=== PATIENT | female | born 1965 | race Caucasian/White ===

== ENCOUNTER 2017-05-04 13:52 | Emergency (ER) | payer BC ==
[2017-05-04 14:22] VITALS: BP 156/78
--- NOTE | 2017-05-04 14:30 | UC ---
Catie Brar Rebecca, scribed for Mitchell Allen MD on 05/04/17 at 1415 . General HPI - HPI Summary HPI Summary: Pt is a 51 y/o F who presents to [facility] c/o low pulse rate and low BP COMMERCIAL ILLUSTRATOR, according to her home monitor. Pt reports that at home, her pulse was in the 40s and her BP was 110/77 whereas the BP is typically 150 systolic. Currently, she c/o palpitations characterized as irregular and pounding. Additionally c/o lightheadedness upon sitting up. Took 81 mg ASA COMMERCIAL ILLUSTRATOR. Denies CP, SOB, fever, chills, edema, and abd pain. Reports one incidence of irregular heart rhythm (" 2 beats then none") 1-2 years ago after ceasing oral contraceptives. Is not on any blood thinners or diuretics. Negative recent illness. Takes Losartan to treat HTN. Has never had a stress test or worn a surveillance system monitor. FHx PEs. - History of Current Complaint Stated Complaint: PULSE LOW BP OFF Time Seen by Provider: 05/04/17 14:03 Hx Obtained From: Patient Hx Last Menstrual Period: 3 WEEKS AGO Onset/Duration: Still Present Current Severity: None Pain Intensity: 0 Pain Location at: NEGATIVE Aggravating: Nothing Alleviating: Nothing Associated Signs & Symptoms: Positive: Palpitations - irregular, pounding, Other - Low BP and heart rate COMMERCIAL ILLUSTRATOR; lightheadedness upon sitting up - Allergy/Home Medications Allergies/Adverse Reactions: Allergies Allergy/AdvReac Type Severity Reaction Status Date / Time Iodine Allergy Severe acute Verified 05/04/17 14:22 pancreatitis Sulfa Drugs Allergy Severe Hives Verified 05/04/17 14:22 PMH/Surg Hx/FS Hx/Imm Hx Previously Healthy: No Cardiovascular History: Hypertension GI/ History: Other Other GI/ History: Crohn's - Surgical History Surgical History: Yes Surgery Procedure, Year, and Place: COLOSTOMY, OPEN ABD SURGERY-10/18/2014- PERITONITIS, COLOSTOMY REVERSAL 08/2015 - Family History Known Family History: Positive: Other - FHx PE; no family hx Crohns - Social History Alcohol Use: None Substance Use Type: None Smoking Status (MU): Never Smoked Tobacco - Immunization History Most Recent Influenza Vaccination: HAS NOT HAD Most Recent Tetanus Shot: UP TO DATE Most Recent Pneumonia Vaccination: HAS NOT HAD Review of Systems Constitutional: Other - Low BP and heart rate COMMERCIAL ILLUSTRATOR, per home monitor Skin: Negative Eyes: Negative ENT: Negative Respiratory: Negative Cardiovascular: Palpitations - irregular and pounding Gastrointestinal: Negative Genitourinary: Negative Motor: Negative Neurovascular: Negative Musculoskeletal: Negative Neurological: Other - Lightheadedness upon sitting up Psychological: Negative All Other Systems Reviewed And Are Negative: Yes Physical Exam Triage Information Reviewed: Yes Vital Signs: Initial Vital Signs Temp 98.1 F 05/04/17 14:05 Pulse 49 05/04/17 14:05 Resp 18 05/04/17 14:05 BP 156/78 05/04/17 14:05 Pulse Ox 100 05/04/17 14:05 Vital Signs Reviewed: Yes - Additional Comments The patient is well-nourished in no acute distress and in no acute pain. The skin is warm and dry and skin color reflects adequate perfusion. No cyanosis and is not diaphoretic. HEENT: The head is normocephalic and atraumatic. The pupils are equal and reactive. The conjunctivae are clear and without drainage. Nares are patent and without drainage. Mouth reveals moist mucous membranes and the throat is without erythema and exudate. The external ears are intact. The ear canals are patent and without drainage. The tympanic membranes are intact. Neck is supple with full range of motion and non-tender. There are no carotid bruits. Respiratory: Chest is non-tender. Lungs are clear to auscultation and breath sounds are symmetrical and equal. Cardiovascular: Hear is irregular with ectopy noted. There is no murmur or rub auscultated. There is no peripheral edema. She is bradycardic, pulse was about 42. Abdomen: The abdomen is soft and non-tender. There are normal bowel sounds heard in all four quadrants and there is no organomegaly palpated. Musculoskeletal: There is no back pain noted. Extremities are non-tender with full range of motion. There is good capillary refill. There is no peripheral edema or calf tenderness elicited. Neurological: Patient is alert and oriented to person, place and time. The patient has symmetrical motor strength in all four extremities. Psychiatric: The patient has an appropriate affect and does not exhibit any anxiety or depression. Diagnostics - Laboratory Diagnostic Studies Completed/Ordered: EKG: Done at 1356. rate: 75 bpm. ectopy : PVCs (trigegminy). Old anterior wall GA. NOrmal axis Course/Dx - Course Course Of Treatment: Pt is a 51 y/o F who presents to [facility] c/o low pulse rate and low BP COMMERCIAL ILLUSTRATOR, according to her home monitor. Pt reports that at home, her pulse was in the 40s and her BP was 110/77 whereas the BP is typically 150 systolic. Currently, she c/o palpitations characterized as irregular and pounding. Additionally c/o lightheadedness upon sitting up. Took 81 mg ASA COMMERCIAL ILLUSTRATOR. Denies CP, SOB, fever, chills, edema, and abd pain. Reports one incidence of irregular heart rhythm ("2 beats then none") 1-2 years ago after ceasing oral contraceptives. Is not on any blood thinners or diuretics. Negative recent illness. Takes Losartan to treat HTN. FHx PEs. EKG was done at 1356, rate 75 bpm , reveals trigeminy and an old anterior wall GA with nl axis. Pt confirms that she has never had a cardiac workupa dn that she has not had her BP medication changed in multiple years. Discussed that the pt must be monitored and have further testing completed that is not offered at Urgent Care to which she understands. Offered pt ambulance transportation to [facility] which she denied and will be transported via private car. She will be D/C with Dx of cardiac dysrhythmia, hypertension and near-syncope. She is advised to immediately be evaluated by [facility]. She understands and agrees. Patient medications reviewed this visit. - Differential Dx - Multi-Symptom Provider Diagnoses: Cardiac dysrhythmia. Hypertension. Near-syncope. Discharge - Discharge Plan Condition: Stable Disposition: HOME Patient Education Materials: Near Syncope (ED), Hypertension (ED) Referrals: Emmanuel Pickering MD [Primary Care Provider] - Additional Instructions: Immediately be evaluated by [facility]. The documentation as recorded by the Catie apodaca Rebecca accurately reflects the service I personally performed and the decisions made by , Mitchell Allen MD.
== END 2017-05-04 14:33 | disposition home or self-care (01) ==
LOC: UCEAST 13:52
DX: I49.9 Cardiac arrhythmia, unspecified (principal); I10 Essential (primary) hypertension; R55 Syncope and collapse
CPT/HCPCS: 93005; 99211; G0463

== ENCOUNTER 2017-05-04 14:51 | Observation (INO) | payer BC ==
[2017-05-04] MEDS ORDERED: Aspirin Low Dose CHEW TAB* 81 MG PO ONE (15:23)
--- NOTE | 2017-05-04 16:04 | RAD ---
Indication: Shortness of breath. Bradycardia; irregular rhythm. Comparison: November 03, 2015 CT abdomen. Technique: Upright AP 1531 hours Report: Clear lungs and pleural spaces. Negative for pneumothorax. The heart, pulmonary vasculature, and mediastinal contours are unremarkable. IMPRESSION: No evidence for acute intrathoracic disease.
[2017-05-04 16:06] LABS: Hematocrit 39 % (35-47); Hemoglobin 12.6 g/dl (12.0-16.0); Mean Corpuscular HGB Conc 33 g/dl (31-36); Mean Corpuscular Hemoglobin 31 pg (27-31); Mean Corpuscular Volume 93 fL (80-97); Mean Platelet Volume 9 um3 (7.4-10.4); Red Blood Count 4.12 10^6/ul (4.0-5.4); Red Cell Distribution Width 16 % (10.5-15); White Blood Count 4.6 10^3/ul (3.5-10.8)
[2017-05-04 16:22] LABS: Albumin 4.3 g/dL (3.2-5.2); BUN/Creatinine Ratio 18.6 (8-20); Calcium 9.3 mg/dL (8.6-10.3); EGFR African American 77.6 (>60); EGFR Non-African American 60.3 (>60); Globulin 2.4 g/dL (2-4); Total Bilirubin 0.5 mg/dL (0.2-1.0); Total Protein 6.7 g/dL (6.4-8.9)
[2017-05-04 17:04] LABS: TSH (Thyroid Stimulating Horm) 0.85 mcIU/mL (0.34-5.60)
[2017-05-04 17:11] LABS: Free T4 0.77 ng/dL (0.61-1.12)
[2017-05-04 19:24] LABS: Magnesium 1.8 mg/dL (1.9-2.7)
--- NOTE | 2017-05-05 04:45 | HP ---
CC: Dr. Pickering * [facility] MEDICINE HISTORY AND PHYSICAL: DATE OF ADMISSION: 05/04/17 PRIMARY CARE PHYSICIAN: Dr. Pickering. ATTENDING PHYSICIAN: Huey Ramon MD * (dictation provided by Alexei Campos NP ). CHIEF COMPLAINT: Palpitations and generalized weakness. HISTORY OF PRESENT ILLNESS: Ms. Peguero is a 51-year-old female with past medical history of Crohn's disease with colon perforation, colon resection, colostomy with reversal, as well as hypertension who presents today to the hospital with concerns for palpitations and not feeling well. Ms. Peguero states that she has been under extreme stress recently. She is moving and also under stress at work. In the course of this, she was feeling palpitations in her chest. She took her blood pressure via home blood pressure cuff. She noted it was quite high at 180/90 and her heart rate was 40 this was on . The following day, she again took her pulse and noted it was low. She was continuing to feel these funny palpitations in her chest. She took the evening off and slept well through the night. The next day she was again very tired. On Friday morning, she took her blood pressure again and noted it was in the 150s systolically, but her heart rate remained low in the 40s. She continued to have these odd sensations of palpitations. She spoke to her mother and then to her father who is a physician and they were very concerned about her heart rate being so low and encouraged to strongly to come [facility] for evaluation. At [facility], the patient was noted to have trigeminy with frequent PVCs. There was concern that she was lightheaded. The patient states that she was feeling very stressed about the overall events at that point. Because of the palpitations, PVCs, and lightheadedness, she was transitioned to [facility] ED. In the ED, Ms. Peguero was confirmed to be in trigeminy. It was clear when checking her pulse that the PVCs do not communicate and that likely explains the low heart rate. Thus far she has not had any bradycardia. Her blood pressure has been well controlled, running one-teens to 130s. Her first troponin was negative. EKG shows the PVCs, but no evidence of ischemia. The patient denies chest pain, shortness of breath, nausea, or abdominal pain. She has had no fevers. No chills. She has been eating and drinking normally. PAST MEDICAL HISTORY: 1. Hypertension. 2. Colon perforation with history of Crohn's disease. 3. Colon resection with colostomy and reversal in August 2015. MEDICATIONS: The patient does not know the exact dosages of her medications, but she does take: 1. Losartan. 2. Imitrex. 3. Wellbutrin. 4. Tramadol. FAMILY HISTORY: The patient's mom and dad both are alive and well. The patient 's mother's parents both related to blood clot. Mother has no known history of clotting disorder. SOCIAL HISTORY: No prior tobacco or drug use. The patient drinks alcohol occasionally. She lives with her mom now. She states her mom will be her healthcare proxy. REVIEW OF SYSTEMS: A 14-point review of systems was completed with Ms. Peguero and all those not mentioned above were negative. PHYSICAL EXAMINATION GENERAL: Ms. Peguero is sitting in the bed. She is in no acute distress. VITAL SIGNS: Temperature 98.3, heart rate 78, respiratory rate 14, O2 saturation 98% on room air, blood pressure 119/60. LUNGS: Clear to auscultation bilaterally with no accessory muscle use and good aeration. HEART: S1, S2 with some irregularity. There is no murmurs, rubs, or gallops. ABDOMEN: Soft, nontender with bowel sounds positive x4. EXTREMITIES: No cyanosis or edema. NEURO: She is alert and oriented x3. She moves all extremities equally. There is no facial asymmetry or focal weakness. Extraocular movements are intact. SKIN: Intact. LABORATORY DATA/DIAGNOSTIC STUDIES: Sodium 137, potassium 4.0, chloride 103, serum bicarbonate 28, BUN 18, creatinine 0.97, glucose 89, lactic acid 0.7, troponin 0.00. TSH 0.85, free T4 0.77. WBC 4.6, hemoglobin 12.6, hematocrit 39 , platelet count 218, D-dimer less than 200. Chest x-ray shows no acute process. EKG shows sinus rhythm with trigeminy and heart rate 70. ASSESSMENT: Ms. Peguero is a 51-year-old female with past medical history of hypertension and Crohn's disease with bowel perforation, colostomy, and colostomy reversal back in August 2015 who presents to the hospital today with concerned for palpitation and feeling tired and weak. PLAN: Our plans are for observation in the hospital for the followin. Palpitation with weakness: My concern is that the patient is having symptomatic trigeminy. I did speak with Dr. Reid on the phone regarding his recommendations and he would like for her to have an ischemic workup. Plans are for therefore for her to be monitored on telemetry. She will have repeat troponins. She will have a transthoracic echocardiogram. Finally, she will have a exercise nuclear stress test tomorrow. Lipid profile will be checked. She will continue on aspirin. The patient's potassium is 4.0 and anadd-on test for magnesium is pending. 2. Hypertension. The patient does not know the exact doses of her losartan, plan to start low dose at 25 mg daily until that can be confirmed with pharmacy at [facility] tomorrow. 3. DVT prophylaxis with early mobility. 4. Disposition to telemetry floor. TIME SPENT: Approximately 60 minutes was spent on admission of this patient, and more than half the time spent with the patient bedside reviewing the events leading up to this hospitalization, performing the physical examination, and reviewing the plan of care. ALEXEI CAMPOS NP [id number]/[facility] #: [id number] JEANIE
[2017-05-05] MEDS ORDERED: Magnesium Sulfate 2 GM IV* 2 GM/50 ML BAG IVPB ONE (06:53)
[2017-05-05] MEDS ORDERED: Aspirin EC TAB* 325 MG PO SCH (09:00)
[2017-05-05] MEDS ORDERED: Losartan TAB* 25 MG PO SCH (09:00)
--- NOTE | 2017-05-05 09:17 | ECHO ---
Patient: ARMIN PEDRO [facility] Rec#: [id number] : 1965 Date: 05/05/2017 Age: 51y Height: 172.72 cm / 68.0 in Weight: 57.61 kg / 127.0 lbs Sex: F BSA: 1.69 Room#: [facility] Admit Date#: 05/04/2017 Type: Inpatient Referring: Leeann Campos NP Reading: Lonnie Reid MD Chip Tuner: Dannielle Wright RDCS CC: Emmanuel Pickering MD Transthoracic Echocardiogram Indication: Palpitations, weakness. BP: 126/81 HR: 61 Rhythm: NSR with PVCs Findings History: Crohn's disease with colon perforation and resection, HTN. Technical Comments: The study quality is good. Completed at 0850. Left Ventricle: The left ventricular chamber size is normal. There is no left ventricular hypertrophy. Global left ventricular wall motion and contractility are within normal limits. Left ventricular systolic function is at the lower limits of normal. Frequent ectopy compromises the evalation of wall motion. Possible mild relative hypokinesis of the mid to distal anterior and anteroseptal segements. The estimated ejection fraction is 50-55%. There is no consistent Doppler evidence of clinically significant diastolic dysfunction. Left Atrium: The left atrial chamber size is normal. Right Ventricle: Moderator Band present. The right ventricular cavity size is normal. The right ventricular global systolic function is low normal. Right Atrium: The right atrial cavity size is normal. Aortic Valve: The aortic valve is trileaflet. There is trace to mild aortic regurgitation. There is no evidence of aortic stenosis. Mitral Valve: The mitral valve leaflets are mildly thickened. There is trace to mild mitral regurgitation. There is no evidence of mitral stenosis. Tricuspid Valve: The tricuspid valve leaflets are mildly thickened. There is mild tricuspid regurgitation. The right ventricular systolic pressure is estimated at 21 mmHg. No pulmonary hypertension is noted. There is no tricuspid stenosis. Pulmonic Valve: The pulmonic valve appears normal. There is a trace pulmonic regurgitation. There is no pulmonic stenosis. Pericardium: There is no significant pericardial effusion. Aorta: There is mild dilatation of the ascending aorta. There is no dilatation of the aortic arch. There is no dilation of the aortic root. Pulmonary Artery: The main pulmonary artery appears normal. Venous: The inferior vena cava appears normal in size. There is a greater than 50% respiratory change in the inferior vena cava dimension. Summary: There was not any prior study for comparison. Conclusions Global left ventricular wall motion and contractility are within normal limits. Left ventricular systolic function is at the lower limits of normal. Frequent ectopy compromises the evalation of wall motion. Possible mild relative hypokinesis of the mid to distal anterior and anteroseptal segements. The estimated ejection fraction is 50-55%. There is trace to mild aortic regurgitation. There is trace to mild mitral regurgitation. There is mild tricuspid regurgitation. Measurements Name Value Normal Range RVIDd (AP) 2D 3 cm (0.9 - 2.6) RVDdMajor (2D) 3.1 cm (2.2 - 4.4) RAd ISD 4CH 4.6 cm (3.4 - 4.9) RA (A4C)W 3.5 cm (2.9 - 4.6) IVSd (2D) 0.8 cm (0.6 - 1) LVPWd (2D) 0.8 cm (0.6 - 1) LVIDd (2D) 5 cm (3.6 - 5.4) LVIDs (2D) 3.49 cm - LV FS (2D) 30 % (25 - 45) Aortic Annulus 2.1 cm (1.4 - 2.6) Ao root diameter (2D) 3.4 cm (2.1 - 3.5) Ascending Ao 3.5 cm (2.1 - 3.4) Aortic arch 2.7 cm (1.8 - 3.4) LA dimension (AP) 2D 3.4 cm (2.3 - 3.8) LAd ISD 4CH 3.4 cm (2.9 - 5.3) LA ISD 4CH W 4.1 cm (2.5 - 4.5) Name Value Normal Range LA ESV SP 4CH (A/L) 33 ml - LA ESV SP 2CH (A/L) 65 ml - LA ESV BP (A/L) 50 ml - LA ESV BP (A/L) index 29.33 ml/m2 - LA ESV SP 4CH (MOD) 33 ml - LA ESV SP 2CH (MOD) 54 ml - Name Value Normal Range MV E-wave Vmax 0.52 m/sec - MV deceleration time 198.1 msec - MV A-wave Vmax 0.46 m/sec - MV E:A ratio 1.12 ratio - LV septal e' Vmax 0.08 m/sec - LV lateral e' Vmax 0.08 m/sec - LV E:e' septal ratio 6.5 ratio - LV E:e' lateral ratio 6.5 ratio - Name Value Normal Range AV Vmax 1.02 m/sec - AV VTI 17.8 cm - AV peak gradient 4.17 mmHg - AV mean gradient 1.78 mmHg - LVOT Vmax 0.69 m/sec - LVOT VTI 16.1 cm - LVOT peak gradient 1.88 mmHg - LVOT mean gradient 1.06 mmHg - HUANG Vmax 0.66 m/sec - Name Value Normal Range TR Vmax 2.1 m/sec - TR peak gradient 18 mmHg - RAP 3 mmHg - RVSP 21 mmHg - IVC diameter 2 cm - Name Value Normal Range PV Vmax 0.72 m/sec - PV peak gradient 2.08 mmHg -
--- NOTE | 2017-05-05 12:27 | RAD ---
HISTORY: Palpitation, weakness COMPARISONS: None TECHNIQUE: A 1 day stress/rest myocardial perfusion study was performed, with exercise stress. The exercise portion was performed using the David protocol, for a total METs of 14.8. The stress portion was monitored by Dr. Salazar. Gated SPECT imaging was performed, with CT-based attenuation correction DOSE: Stress: Technetium 99m tetrofosmin, 25.33 millicuries, injected at 11:21 AM on May 05, 2017 Rest: Technetium 99m tetrofosmin, 10.56 millicuries, injected at 9:11 AM on May 05, 2017 Pharmacologic agent: None FINDINGS: CARDIAC MONITORING: Peak heart rate of 158 bpm, 90% of predicted EF: 67 % TID: 0.99 MOTION: Normal motion, with normal wall thickening. PERFUSION: There is a small reversible defect of the inferior wall that resolves attenuation correction and is likely artifactual. There is a small reversible defect of the septum on the attenuation corrected images OTHER: None IMPRESSION: SMALL REVERSIBLE DEFECT OF THE SEPTUM WHICH MAY INDICATE AN AREA OF ISCHEMIA. ASSESSMENT: LOW RISK. Based on imaging criteria from ACC/AHA 2002. Guideline Update for the Management of Patient's with Chronic Stable Angina, table 23. Noninvasive Risk Stratification.
[2017-05-05 12:57] VITALS: BP 120/85
--- NOTE | 2017-05-05 13:20 | PN ---
Subjective Date of Service: 05/05/17 Interval History: Pt is feeling tired. She can not say if she feels much better than when she presented to the ER. She does tell me that this past Friday she felt some very mild chest discomfort, this has now resolved. Objective Active Medications: Aspirin (Ecotrin Ec Tab*) 325 mg PO DAILY [facility] Last Admin: 05/05/17 08:39 Dose: 325 mg Losartan Potassium (Cozaar Tab*) 25 mg PO DAILY [facility] Last Admin: 05/05/17 08:39 Dose: 25 mg Vital Signs 05/04/17 05/04/17 05/04/17 19:00 19:30 20:00 Temperature Pulse Rate 78 70 62 Respiratory 14 16 15 Rate Blood Pressure 170/103 171/79 151/76 (mmHg) O2 Sat by Pulse 99 98 98 Oximetry 05/04/17 05/04/17 05/05/17 21:39 23:46 03:20 Temperature 97.9 F 97.9 F 97.8 F Pulse Rate 70 58 58 Respiratory 16 16 16 Rate Blood Pressure 149/81 122/64 126/81 (mmHg) O2 Sat by Pulse 96 98 97 Oximetry 05/05/17 05/05/17 07:16 12:14 Temperature 97.5 F 98.6 F Pulse Rate 61 65 Respiratory 16 16 Rate Blood Pressure 125/75 120/85 (mmHg) O2 Sat by Pulse 99 99 Oximetry Oxygen Devices in Use Now: None Appearance: Middle aged female sitting up in bed, NAD Eyes: No Scleral Icterus Ears/Nose/Mouth/Throat: Mucous Membranes Moist Respiratory: Symmetrical Chest Expansion and Respiratory Effort, Clear to Auscultation Cardiovascular: NL Sounds; No Murmurs; No JVD, RRR, No Edema Abdominal: NL Sounds; No Tenderness; No Distention Extremities: No Clubbing, Cyanosis Skin: No Rash or Ulcers, No Nodules or Sclerosis Neurological: Alert and Oriented x 3 Result Diagrams: 05/04/17 15:58 05/04/17 15:58 Assess/Plan/Problems-Billing Ms Peguero is a 51 yo F who has a h/o HTN and depression who presented to the ER with c/o weakness, lightheadedness and low pulse and was found to be in trigeminy and was admitted for an ischemic work up. - Patient Problems (1) Ventricular trigeminy Current Visit: Yes Status: Acute Code(s): I49.8 - OTHER SPECIFIED CARDIAC ARRHYTHMIAS SNOMED Code(s): 689603203 Comment: Improved in that she is now having occasional PVCs. She states she feels very tired so is not sure if she feels much better. She had an echo that was slightly difficult to interpret the wall motion due to frequent PVCs but had a low normal EF. Additionally she underwent exercise nuclear stress test. The EKG portion of the test during exercise showed no signs of ischemia and was reported to be a negative maximal exercise stress. The nuclear imaging showed a small area of reversible change of the septum. I spoke with the concrete mixer operator helper entry level machine operator who felt that there was not septal ischemia. The patient can follow up with Dr. King in the next 1-2 weeks to determine if anything further should be done. (2) Weakness Current Visit: Yes Status: Acute Code(s): R53.1 - WEAKNESS SNOMED Code(s) : 15783507 Comment: Possibly related to frequent PVCs. Monitor. (3) Anxiety and depression Current Visit: Yes Status: Chronic Comment: Continue wellbutrin. (4) DVT prophylaxis Current Visit: Yes Status: Acute Code(s): DFR7766 - SNOMED Code(s): 811024102 Comment: ambulation (5) Full code status Current Visit: Yes Status: Acute Code(s): Z78.9 - OTHER SPECIFIED HEALTH STATUS SNOMED Code(s): 987455976 Status and Disposition: d/c home
--- NOTE | 2017-05-06 03:15 | DS ---
CC: Dr. Pickering; Dr. King * DISCHARGE SUMMARY: DATE OF ADMISSION: 05/04/17 DATE OF DISCHARGE: 05/05/17 PRIMARY CARE PROVIDER: Dr. Pickering. PRINCIPAL DIAGNOSIS: Ventricular trigeminy with associated weakness. SECONDARY DIAGNOSES: 1. Depression. 2. Hypertension. DISCHARGE MEDICATIONS: 1. Omeprazole 20 mg p.o. b.i.d. 2. Losartan 50 mg p.o. daily. 3. Tramadol 50 mg p.o. q.6 hours p.r.n. pain. 4. Bupropion SR 150 mg p.o. t.i.d. 5. Sumatriptan 100 mg p.o. daily p.r.n. migraine. HOSPITAL COURSE: Ms. Peguero is a 51-year-old female, who presented to the emergency room on 05/04/17 with complaints of weakness and low heart rate. The patient had been feeling her heart is skipping for a couple of days prior to presenting to the ER. She she checked her blood pressure with an automated cuff that also checks heart rate and found that heart rate was listed to be 40. In the ER, the patient was found to be in ventricular trigeminy. Dr. Reid was contacted by the ER room provider and recommended the patient be admitted for an ischemic workup. The patient was admitted and ruled out for WI. She was monitored on telemetry. She underwent transthoracic echocardiogram , which revealed an EF of 50% to 55%. No left ventricular hypertrophy, global left ventricular wall motion contractility were felt to be within normal limits ; however, the frequent ectopy compromises the evaluation of wall motion and felt the possible mild relative hypokinesis of the [id number]-weskqs anterior and anteroseptal segments was noted. The patient also underwent an exercise nuclear stress test. The EKG component of the stress test was reported to be negative maximal stress test. The patient's nuclear images, however, were reported to have a small reversible area of ischemia of the septum. Because of this finding, I did contact the on-call gift consultant, who reviewed the nuclear images. It was felt that the small area of reversible ischemia read by the radiologist was not present per the gift consultant and the negative maximal exercise stress was fairly reassuring. At this point, the patient can be discharged home. I have provided the patient with Dr. King's phone number to call to be seen in outpatient setting in followup for management of her frequent PVCs. FOLLOWUP CONCERNS: The patient is being discharged home today, 05/05/17. ACTIVITY: As tolerated. DIET: Regular. CONDITION ON DISCHARGE: Stable. The patient should follow up with Dr. Pickering in the next 4 to 7 days. TIME SPENT: Twenty-five minutes was spent discharging this patient. [id number]/CPS #: [id number] MTDD
--- NOTE | 2017-05-06 07:56 | ED ---
Wisam Brar SooYoung, scribed for Edin Garza MD on 05/04/17 at 1523 . Palpitations / Dysrhythmia - HPI Summary HPI Summary: A 51 y/o F referred from [facility] [place] presents to ED with low blood pressure onset this AM. She states her pulse was very low, in the 40s, using a home blood monitoring machine. She also had some irregular palpitations during the past few days. Associated sx: lightheadedness for past few days, brief episodes of very mild CP yesterday since resolved. She notes feeling "like something was in her throat." Denies any recent illness. Pt has been moving which has been stressful. PCP is Dr. Faye. Nonsmoker. Occasional ETOH. No recent medication changes, takes BP medication, Wellbutrin, Imitrex for migraines. PMHx: Crohn's dz. She states her Crohn's has been manageable recently. FHx: grandparents and mother had blood clots. Pt began a low-carb diet about three months ago. - History of Current Complaint Chief Complaint: EDDysrhythmPalp Time Seen by Provider: 05/04/17 15:21 Hx Obtained From: Patient, Family/Administrative Officer - mother Onset/Duration: Lasting Hours - this AM, Still Present Severity Initially: Moderate Severity Currently: Moderate Character: Irregular Associated Signs & Symptoms: Lightheadedness, Chest Pain - very mild, resolved - Allergy/Home Medications Allergies/Adverse Reactions: Allergies Allergy/AdvReac Type Severity Reaction Status Date / Time Iodine Allergy Severe acute Verified 05/04/17 14:22 pancreatitis Sulfa Drugs Allergy Severe Hives Verified 05/04/17 14:22 PMH/Surg Hx/FS Hx/Imm Hx Previously Healthy: No Endocrine/Hematology History: Reports: Hx Anemia Denies: Hx Diabetes, Hx Thyroid Disease Cardiovascular History: Reports: Hx Hypertension - ON MEDICATION FOR Denies: Hx Congestive Heart Failure Respiratory History: Denies: Hx Asthma, Hx Chronic Obstructive Pulmonary Disease (COPD) GI History: Reports: Hx Crohn's Disease, Hx Ulcer - IN THE LAST FEW YEARS-ON OMEPRAZOLE Denies: Other GI Disorders History: Reports: Hx Kidney Infection - HX OF IN THE PAST Denies: Hx Renal Disease Musculoskeletal History: Reports: Other Musculoskeletal History - RIGHT SHOULDER FRACTURE- SPRING 2014-WAS TREATED FOR WITH IMMOBILIZING Sensory History: Reports: Hx Contacts or Glasses - INSTRUCTS GIVEN Denies: Hx Hearing Aid Opthamlomology History: Reports: Hx Contacts or Glasses - INSTRUCTS GIVEN Neurological History: Reports: Hx Headaches, Hx Migraine - TREATS WITH IMITREX- OR ADVIL- RARELY - Surgical History Surgery Procedure, Year, and Place: COLOSTOMY, OPEN ABD SURGERY-10/18/2014- PERITONITIS, COLOSTOMY REVERSAL 08/2015 Hx Anesthesia Reactions: No Infectious Disease History: Denies: Hx Clostridium Difficile, Hx Hepatitis, Hx Human Immunodeficiency Virus (HIV), Hx of Known/Suspected MRSA, Hx Shingles, Hx Tuberculosis, Hx Known/ Suspected VRE, Hx Known/Suspected VRSA, History Other Infectious Disease, Traveled Outside the [place] in Last 30 Days - Family History Known Family History: Positive: Other - FHx PE, blood clots; no family hx Crohns - Social History Occupation: Employed Full-time Lives: With Family Alcohol Use: None Hx Substance Use: No Substance Use Type: Reports: None Hx Tobacco Use: No Smoking Status (MU): Never Smoked Tobacco Review of Systems Negative: Fever, Chills Negative: Erythema Negative: Sore Throat Positive: Palpitations, Chest Pain - very mild, Other - pos: low blood pressure Negative: Shortness Of Breath, Cough Negative: Abdominal Pain, Vomiting, Nausea Negative: dysuria, hematuria Negative: Myalgia, Edema Negative: Rash Neurological: Other - pos: lightheadedness; neg: dizziness All Other Systems Reviewed And Are Negative: Yes Physical Exam - Summary Physical Exam Summary: Constitutional: Well-developed, Well-nourished, Alert. (-) Distressed Skin: Warm, Dry HENT: Normocephalic; Atraumatic Eyes: Conjunctiva normal Neck: Musculoskeletal ROM normal neck. (-) JVD, (-) Stridor, (-) Tracheal deviation Cardio: Regularly Irregular Rhythm, Bradycardia, Heart sounds normal; Intact distal pulses; The pedal pulses are 2+ and symmetric. Radial pulses are 2+ and symmetric. (-) Murmur Pulmonary/Chest wall: Effort normal. (-) Respiratory distress, (-) Wheezes, (-) Rales Abd: Soft, (-) Tenderness, (-) Distension, (-) Guarding, (-) Rebound Musculoskeletal: (-) Edema Lymph: (-) Cervical adenopathy Neuro: Alert, Oriented x3 Psych: Mood and affect Normal Triage Information Reviewed: Yes Vital Signs On Initial Exam: Initial Vitals Temp Pulse Resp BP Pulse Ox 98.0 F 72 20 180/75 100 05/04/17 14:53 05/04/17 14:53 05/04/17 14:53 05/04/17 14:53 05/04/17 14:53 Vital Signs Reviewed: Yes Diagnostics - Vital Signs Vital Signs Temp Pulse Resp BP Pulse Ox 05/04/17 14:53 98.0 F 72 20 180/75 100 - Laboratory Result Diagrams: 05/04/17 15:58 05/04/17 15:58 Lab Statement: Any lab studies that have been ordered have been reviewed, and results considered in the medical decision making process. - Radiology CXR Xray Interpretation: No Acute Changes - IMPRESSION: No evidence for acute intrathoracic dz. - EKG 1508 Cardiac Rate: NL - [address] Segment: Normal - no STEMI EKG Interpretation: Ventricular trigeminy EKG Comparison: Other - New arrythmia. Compared to EKG on 08/28/2015. Re-Evaluation - Re-Evaluation 1 Re-Evaluation Time: 17:45 Change: Unchanged Comment: Discussing consults, plan to admit for observation with pt. Pt voiced understanding. Course/Dx - Course Course Of Treatment: Pt is a 51 y/o F referred from [facility] [place] presenting with low blood pressure onset this AM. She states her pulse was very low, in the 40s, using a home blood monitoring machine. She also had some irregular palpitations during the past few days. Associated sx: lightheadedness for past few days, brief episodes of very mild CP yesterday since resolved. She notes feeling " like something was in her throat." Denies any recent illness. Pt has been moving which has been stressful. PCP is Dr. Faye. Nonsmoker. Occasional ETOH. No recent medication changes; takes BP medication, Wellbutrin, Imitrex for migraines. PMHx: Crohn's dz. She states her Crohn's has been manageable recently. FHx: grandparents and mother had blood clots. Pt began a low-carb diet about three months ago. Blood work is without significant abnormalities. EKG shows ventricular bigeminy with 69bpm, no STEMI. New arrythmia compared to EKG on 08/28/2015. CXR is negative. Pt given Aspirin in ED. Consulted with Dr. Reid who recommends admit for observation. Dr. Ramon agreed to admit. - Diagnoses Provider Diagnoses: Trigeminy, Bradycardia, Dizziness, Chest pain, unspecified - Physician Notifications Discussed Care Of Patient With: Lonnie Reid - cardio Time Discussed With Above Provider: 17:33 Instructed by Provider To: Admit As Observation - recommends Discharge - Discharge Plan Condition: Stable Disposition: ADMITTED TO [facility] Discharge Disposition Comment: for observation Referrals: Emmanuel Pickering MD [Primary Care Provider] - Consult Consult: 174: Consult with Dr. Ramon Will admit pt for observation. The documentation as recorded by the Wisam apodaca SooYoung accurately reflects the service I personally performed and the decisions made by me, Edin Garza MD.
== END 2017-05-05 14:54 | disposition home or self-care (01) ==
LOC: ED 14:51 → MEDTELE 18:49
PROVIDERS: ADMIT Internal Medicine; ATTEND Hospitalist
DX: R00.8 Other abnormalities of heart beat (principal); R53.1 Weakness; I10 Essential (primary) hypertension; I25.89 Other forms of chronic ischemic heart disease; I49.3 Ventricular premature depolarization; R07.9 Chest pain, unspecified; R42 Dizziness and giddiness; K50.90 Crohn's disease, unspecified, without complications
CPT/HCPCS: 36415; 71010; 78452; 80053; 80061; 83605; 83735; 84439; 84443; 84484; 85025; 85379; 93005; 93017; 93306; 96365; 99283; A9270-GY; A9502; G0378; J3475